=== PATIENT | male | born 1975 | race Caucasian/White ===

== ENCOUNTER 2018-10-18 10:29 | Emergency (ER) | payer OTHER ==
[~2018-10-18] VITALS: Ht 182.9 cm; Wt 136.1 kg
[~2018-10-18 10:29] MED LIST: ALBU90OI INH; ALBU90OI61 INH; AMLO10 PO; AZIT250 PO; BENZ100A PO; BUDE6HFA INH; CLON.1 PO; CODBUTACEC PO; CYCL10 PO; Crutch1 EACH MISC; FURO40 PO; Flovent Disku100 MCG IH; HYDACE5 PO; IBUP600 PO; IBUP800 PO; Ipratr-Albuterol3 ML; LOSHYD PO; MONT10T PO; Norco 5-325 Ta1 EACH PO; OSEL75CA PO; OXYACE5T PO; PHENY100ER PO; PRED10 PO; PRED20 PO; PROC10 PO; PROCODE120 PO; PRODEXEL PO; PROM25 PO; Percocet 5-3251 EACH PO; Prednisone20 MG PO; RXHYDACE PO; TELM40/12. PO; TYLENOL W/CODEINE PO; Ultram50 MG PO; Ventolin Soln3 ML INH; Zithromax250 MG PO
[2018-10-18] MEDS ORDERED: Cipro500 MG PO (11:13)
== END 2018-10-18 11:17 | disposition home or self-care (01) ==
LOC: ER 10:29
DX: S91.332A Puncture wound without foreign body, left foot, initial encounter (principal); I10 Essential (primary) hypertension; F17.200 Nicotine dependence, unspecified, uncomplicated; W45.0XXA Nail entering through skin, initial encounter; Y99.0 Civilian activity done for income or pay
CPT/HCPCS: 90471; 90714; 99283-25